=== PATIENT | male | born 1945 | race Two or more races ===

== ENCOUNTER 2016-04-20 06:48 | Day surgery (SDC) | payer MEDICARE, MEDICAID ==
[~2016-04-20 06:48] MED LIST: ALFU10TA12 PO; ATO40T PO; CALC625T31 PO; CIPR-217 PO; DULO20CA PO; ESOM40CA39 PO; FINA5TAB4 PO; GLIM1TAB2 PO; LORA-622 PO; METF-314 PO; SIME80CH6 PO; SITA100T7 PO
[2016-04-20] MEDS ORDERED: IOHEXOL 350 MG/ML 100ML IJ ONE (07:27)
[2016-04-20] MEDS ORDERED: LIDOCAINE 2%HCL (LOCAL ANESTH.) INJ 20ML MDV ONE (07:27)
[2016-04-20] MEDS ORDERED: MIDAZOLAM HCL 1MG/1ML-2 ML VIAL ONE (08:37)
[2016-04-20] MEDS ORDERED: fentaNYL CITRATE 100 MCG/2 ML VL ONE (08:38)
[2016-04-20] MEDS ORDERED: SODIUM CHL 0.9% 0 ML ONE (08:38)
[2016-04-20] MEDS ORDERED: ANGIOMAX 250 MG VIAL IV ONE (08:38)
== END 2016-04-20 14:11 | disposition home or self-care (01) ==
LOC: CATH 06:48
PROVIDERS: ATTEND Internal Medicine Cardiovascular Disease
DX: R94.39 Abnormal result of other cardiovascular function study (principal); I10 Essential (primary) hypertension; E78.5 Hyperlipidemia, unspecified; I25.10 Atherosclerotic heart disease of native coronary artery without angina pectoris
CPT/HCPCS: 93458; C1760; C1894; J1644; J2250; J3010; J7030; Q9967; 99152

== ENCOUNTER → 2016-05-18 | Outpatient (CLI) | payer MEDICARE, MEDICAID ==
[2016-05-18 09:55] VITALS: BP 134/76
[2016-05-18 10:26] VITALS: BP 150/86
== END | disposition home or self-care (01) ==
LOC: Rad HDHVI 09:36
PROVIDERS: ATTEND Internal Medicine Cardiovascular Disease
DX: I10 Essential (primary) hypertension (principal); Z95.5 Presence of coronary angioplasty implant and graft; G45.8 Other transient cerebral ischemic attacks and related syndromes; I25.2 Old myocardial infarction; I25.10 Atherosclerotic heart disease of native coronary artery without angina pectoris; I73.89 Other specified peripheral vascular diseases; D64.9 Anemia, unspecified; E78.4 Other hyperlipidemia; I70.211 Atherosclerosis of native arteries of extremities with intermittent claudication, right leg; E11.9 Type 2 diabetes mellitus without complications
CPT/HCPCS: 75635; 93880; G0463